=== PATIENT | male | born 1975 | race Hispanic/Latino ===

== ENCOUNTER 2023-03-08 15:32 | Emergency (ER) | payer OTHER ==
--- OUTSIDE RECORDS SUMMARY | 2023-03-08 15:35 | XMS REPORT | Continuity of Care Document ---
:1975 Author Organization [facility] t Address [address] [place] [address] [address] [place] [address] Care Team Providers Name Role Phone EARLE MOULTON Attending Clinician Unavailable PRIMMARIELY, EARLE MARLEY Attending Clinician Unavailable PRIMMARIELY, EARLE MARLEY Admitting Clinician Unavailable Payers Payer Name Policy Type Policy Number Effective Date Expiration Date Ron [place] [id number] 2017 [employer]C 00:00:00 [facility] Problems This patient has no known problems. Allergies, Adverse Reactions, Alerts This patient has no known allergies or adverse reactions. Medications This patient has no known medications. Procedures This patient has no known procedures. Encounters Start End Encounter Admission Attending Care Care Encounter Source Date/Time Date/Time Type Type Clinicians Facility Department ID 2022-12-23 2022-12-23 Outpatient [facility] [id number] Marek 09:29:18 09:29:18 [id number] F Sulaiman 2022-08-19 2022-08-19 Outpatient [facility] [id number] Marek 11:49:35 11:49:35 [id number] F Sulaiman 2022-07-02 2022-07-02 Outpatient [facility] [id number] [place] 09:45:00 09:45:00 [facility] 2022-01-04 2022-01-04 Outpatient [facility] NATHALIE [id number] 12:05:00 23:59:00 EARLE choi [facility] 2021-12-28 2021-12-28 Outpatient [facility] [id number] [place] 10:30:00 10:30:00 [facility] 2021-12-28 2021-12-28 Outpatient [facility] [id number] [place] 09:45:00 09:45:00 [facility] Results This patient has no known results.
[2023-03-08 17:47] LABS: Absolute Lymphocytes (CBC) 1.4 K/uL (0.7-4.9); Hematocrit 46.7 % (39.6-49.0); Lymphocytes % 17.2 % (15.3-44.8); MCV 93.2 fL (80-100); MPV 8.9 fL (7.6-11.3); Platelets 203 thou/uL (152-406); RBC Red Blood Cell Count 5.01 M/uL (4.33-5.43)
[2023-03-08 17:52] LABS: Protime INR 1.11
[2023-03-08 18:06] LABS: Magnesium 2.1 mg/dL (1.6-2.4); Potassium 3.2 mEq/L (3.5-5.1); Troponin High Sensitivity 4.3 pg/mL (<58.9)
--- NOTE | 2023-03-08 18:16 | RAD REPORT ---
EXAM DESCRIPTION: RAD - Chest Single View - 03/08/2023 6:07 pm CLINICAL HISTORY: SWELLING COMPARISON: CHEST SINGLE VIEW dated 03/07/2015; CHEST PA AND LAT 2 VIEW dated 12/11/2008 FINDINGS: Lines: None. Lungs: No evidence of edema or pneumonia. Pleural: No significant pleural effusions or pneumothorax. Cardiac: The heart size is within normal limits. Mediastinum: Within normal limits. Bones: No acute fractures. Other: None IMPRESSION: No acute cardiopulmonary disease.
--- NOTE | 2023-03-08 18:53 | RAD REPORT ---
EXAM DESCRIPTION: US - Extrem Venous W Compress Klaus - 03/08/2023 6:33 pm CLINICAL HISTORY: Pain;Swelling COMPARISON: No comparisons TECHNIQUE: Real-time sonographic evaluation of the lower extremity deep venous systems was performed using color Doppler, grayscale, and compression. FINDINGS: Bilateral lower extremities. Color Doppler, grayscale, and spectral analysis was performed. The right posterior tibial vein was in completely compressible an had a filling defect on grayscale. The remaining venous structures in the right and left lower extremity were compressible and did not demonstrate abnormality on color or gonzalez scale. IMPRESSION: Positive for deep venous thrombosis involving the right posterior tibial vein. The left lower extremity was negative for deep venous thrombosis. Findings relayed to Lise Ellison by Dr. Cabrera via secure chat at [phone] on 03/08/23
--- NOTE | 2023-03-08 19:44 | ER ---
Nurse's Notes [facility] Name: Malcolm Edwards Age: 47 yrs Sex: Male : 1975 Arrival Date: 03/08/2023 Time: 15:32 Bed 3 Private MD: Diagnosis: Acute embolism and thrombosis of unspecified deep veins of right lower extremity Presentation: 03/08 16:07 Chief complaint: Right leg pain, swelling, and hot to touch since this morning. Denies hb injury. Coronavirus screen: At this time, the client does not indicate any symptoms associated with coronavirus-19. Ebola Screen: No symptoms or risks identified at this time. Initial Sepsis Screen: Does the patient meet any 2 criteria? No. Patient's initial sepsis screen is negative. Does the patient have a suspected source of infection? No. Patient's initial sepsis screen is negative. Risk Assessment: Do you want to hurt yourself or someone else? Patient reports no desire to harm self or others. Onset of symptoms was March 08, 2023. 16:07 Acuity: LUIS 3 hb 16:07 Method Of Arrival: Ambulatory hb Historical: - Allergies: 16:08 No Known Allergies; hb - Home Meds: 16:08 None [Active]; hb - PMHx: 16:08 None; hb - PSHx: 16:08 Gastric Bypass; hb - Immunization history:: Adult Immunizations up to date. - Social history:: Smoking status: Patient denies any tobacco usage or history of. Screenin:47 [facility] ED Fall Risk Assessment (Adult) History of falling in the last 3 months, km8 including since admission No falls in past 3 months (0 pts) Confusion or Disorientation No (0 pts) Intoxicated or Sedated No (0 pts) Impaired Gait No (0 pts) Mobility Assist Device Used No (0 pt) Altered Elimination No (0 pt) Score/Fall Risk Level 0 - 2 = Low Risk Oriented to surroundings, Maintained a safe environment, Educated pt \T\ family on fall prevention, incl call for assistance when getting out of bed, Assessed \T\ reinforced patient's understanding of fall precautions. Abuse screen: Denies threats or abuse. Denies injuries from another. Nutritional screening: No deficits noted. Tuberculosis screening: No symptoms or risk factors identified. Assessment: 19:47 General: Appears in no apparent distress. comfortable, Behavior is calm, cooperative, km8 appropriate for age. Pain: Complains of pain in right lower leg Pain currently is 7 out of 10 on a pain scale. Neuro: Flores Agitation-Sedation Scale (RASS): 0 - Alert and Calm Level of Consciousness is awake, alert, obeys commands, Oriented to person, place, time. Cardiovascular: Denies chest pain, shortness of breath, Capillary refill < 3 seconds Patient's skin is warm and dry. Respiratory: Airway is patent Respiratory effort is even, unlabored, Respiratory pattern is regular, symmetrical. GI: No signs and/or symptoms were reported involving the gastrointestinal system. : No signs and/or symptoms were reported regarding the genitourinary system. EENT: No signs and/or symptoms were reported regarding the EENT system. Derm: No signs and/or symptoms reported regarding the dermatologic system. Skin is intact, is healthy with good turgor, Skin is dry, Skin is normal, Skin temperature is warm. Musculoskeletal: No signs and/or symptoms reported regarding the musculoskeletal system. Range of motion: limited in left elbow and left wrist and left hand/fingers Atrophy noted in left arm. 20:24 Reassessment: Patient appears in no apparent distress at this time. No changes from km8 previously documented assessment. Patient and/or family updated on plan of care and expected duration. Pain level reassessed. Patient is alert, oriented x 3, equal unlabored respirations, skin warm/dry/pink. Vital Signs: 16:07 Pulse 98; Resp 18; Temp 97.4(TE); Pulse Ox 97% ; Weight 181.44 kg; Height 5 ft. 6 in. ; hb Pain 7/10; 19:47 BP 125 / 79; Pulse 80; Resp 16 S; Pulse Ox 96% on R/A; km8 20:00 BP 131 / 79; Pulse 78; Resp 16 S; Pulse Ox 99% on R/A; km8 16:07 Body Mass Index 64.56 (181.44 kg, 167.64 cm) hb 16:07 Pain Scale: Adult hb ED Course: 15:36 Patient arrived in ED. mg5 15:51 Chicho Ellison PA is PHCP. cp 15:51 Mor Terry MD is Attending Physician. cp 16:07 Triage completed. hb 16:08 Arm band placed on. hb 17:41 Basic Metabolic Panel Sent. bc6 17:41 CBC with Diff Sent. bc6 17:41 Magnesium Sent. bc6 17:41 NT PRO-BNP Sent. bc6 17:41 PT-INR Sent. bc6 17:41 Troponin HS Sent. bc6 17:41 Inserted saline lock: 24 gauge in right hand, using aseptic technique. Blood collected. bc6 18:09 XRAY Chest (1 view) In Process Unspecified. EDMS 18:35 US Extremity Venous W Compression Klaus In Process Unspecified. EDMS 19:33 Alexia Davalos, RN is Primary Nurse. 8 19:47 Patient has correct armband on for positive identification. Bed in low position. Call [facility] light in reach. Side rails up X 1. Client placed on continuous cardiac and pulse oximetry monitoring. NIBP monitoring applied. countersinker balance screw hole on. 19:47 Patient maintains SpO2 saturation greater than 95% on room air. km8 19:51 Provided Education on: d/c teaching and blood thinner medication teaching. 8 19:51 No provider procedures requiring assistance completed. IV discontinued, intact, km8 bleeding controlled, No redness/swelling at site. Pressure dressing applied. Administered Medications: 19:47 Drug: Xarelto PO 20 mg PO once Route: PO; 8 20:23 Follow up: Response: No adverse reaction [facility] 19:47 Drug: Hydrocodone-Acetaminophen PO (7.5 mg-325 mg) 1 tabs PO once; RASS on ADMIN: km8 Combtv4, Very Agttd3, Agttd2, Rstlss1, AlertClm0, Drwsy-1, Lt Sdtn-2, Mod Sdtn-3, Dp Sdtn-4, UnArsble-5 Route: PO; 20:23 Follow up: Response: No adverse reaction 8 19:59 Drug: Potassium PO Effervescent Tablet 50 mEq PO once; dissolve in 4 ounces of water or km8 juice Route: PO; 20:23 Follow up: Response: No adverse reaction Medication: 19:51 VIS not applicable for this client. km8 Outcome: 19:44 Discharge ordered by . cp 20:27 Discharged to home ambulatory, 8 20:27 Condition: good 20:27 Discharge instructions given to patient, Instructed on discharge instructions, follow up and referral plans. medication usage, Demonstrated understanding of instructions, follow-up care, medications, Prescriptions given X , 20:28 Patient left the ED. km8 Signatures: Dispatcher [employer] EDMS Chicho Ellison PA PA cp Baxter, Heather, SAVITA BARNEY Stefanie Sheldon 6 Alicia Ortega 5 Alexia Davalos RN RN km8
--- NOTE | 2023-03-08 19:44 | EDPHYS ---
Physician Documentation [facility] Name: Malcolm Edwards Age: 47 yrs Sex: Male : 1975 Arrival Date: 03/08/2023 Time: 15:32 Bed 3 Private MD: ED Physician Mor Terry HPI: 03/08 16:15 This 47 yrs old Male presents to ER via Ambulatory with complaints of Leg cp Pain, Leg Swelling. 16:15 The patient presents with pain, that is acute, swelling, tenderness. The complaints cp affect the right lower leg. Context: resulted from an unknown cause, the patient can fully bear weight, the patient is able to ambulate, with mild difficulty, Problem is a result from a previous injury: No. 19:15 Patient denies any chest pain, denies any shortness of breath. cp Historical: - Allergies: 16:08 No Known Allergies; hb - Home Meds: 16:08 None [Active]; hb - PMHx: 16:08 None; hb - PSHx: 16:08 Gastric Bypass; hb - Immunization history:: Adult Immunizations up to date. - Social history:: Smoking status: Patient denies any tobacco usage or history of. ROS: 16:20 Constitutional: Negative for body aches, chills, fever, poor PO intake, cp 16:20 Eyes: Negative for injury, pain, redness, and discharge, cp 16:20 ENT: Negative for drainage from ear(s), ear pain, sore throat, difficulty swallowing, difficulty handling secretions, 16:20 Cardiovascular: Negative for chest pain, 16:20 Respiratory: Negative for cough, shortness of breath, wheezing, 16:20 Abdomen/GI: Negative for abdominal pain, vomiting, diarrhea, constipation, 16:20 Back: Negative for pain at rest, pain with movement, 16:20 MS/extremity: Positive for erythema, pain, swelling, tenderness, of the right lower leg, Negative for injury or acute deformity, paresthesias, 16:20 Neuro: Negative for altered mental status, dizziness, headache, syncope, near syncope, weakness, 16:20 All other systems are negative, Exam: 16:25 Constitutional: The patient appears in no acute distress, alert, awake, cp non-diaphoretic, non-toxic, well developed, well nourished, obese, 16:25 Head/Face: Normocephalic, atraumatic. cp 16:25 Eyes: Periorbital structures: appear normal, Conjunctiva: normal, no exudate, no injection, Sclera: no appreciated abnormality, Lids and lashes: appear normal, bilaterally, 16:25 ENT: External ear(s): are unremarkable, Nose: is normal, Mouth: Lips: moist, Oral mucosa: pink and intact, moist, Posterior pharynx: is normal, airway is patent, no erythema, no exudate, 16:25 Chest/axilla: Inspection: normal, 16:25 Cardiovascular: Rate: normal, Rhythm: regular, Edema: ankle edema, that is mild, JVD: is not appreciated, 16:25 Respiratory: the patient does not display signs of respiratory distress, Respirations: normal, no use of accessory muscles, no retractions, labored breathing, is not present, Breath sounds: are clear throughout, no decreased breath sounds, no stridor, no wheezing, 16:25 Abdomen/GI: Exam negative for discomfort, distension, guarding, Inspection: obese 16:25 Back: pain, is absent, ROM is normal, 16:25 Musculoskeletal/extremity: Extremities: grossly normal except: noted in the right lower leg: appears with mild swelling, mild erythema, tenderness to palpation, overlying skin intact and warm to touch, Perfusion: the extremity is normally perfused throughout, the right leg Sensation intact. 17:53 ECG was reviewed by the Attending Physician. cp Vital Signs: 16:07 Pulse 98; Resp 18; Temp 97.4(TE); Pulse Ox 97% ; Weight 181.44 kg; Height 5 ft. 6 in. ; hb Pain 7/10; 19:47 BP 125 / 79; Pulse 80; Resp 16 S; Pulse Ox 96% on R/A; km8 20:00 BP 131 / 79; Pulse 78; Resp 16 S; Pulse Ox 99% on R/A; km8 16:07 Body Mass Index 64.56 (181.44 kg, 167.64 cm) hb 16:07 Pain Scale: Adult hb MDM: 16:09 Patient medically screened. cp 17:00 Differential diagnosis: DVT, cellulitis, sepsis, abscess. cp 19:44 Data reviewed: vital signs, nurses notes, lab test result(s), EKG, radiologic studies, cp plain films, ultrasound. 19:44 Consideration of Admission/Observation Escalation of care including cp admission/observation considered. I considered the following discharge prescriptions or medication management in the emergency department Medications were administered in the Emergency Department. See MAR. Independent interpretation of the following test(s) in the Emergency Department EKG: See my EKG interpretation above. Counseling: I had a detailed discussion with the patient and/or guardian regarding the historical points, exam findings, and any diagnostic results supporting the discharge/admit diagnosis, lab results, radiology results, the need for outpatient follow up, a family practitioner, to return to the emergency department if symptoms worsen or persist or if there are any questions or concerns that arise at home. Response to treatment: the patient's symptoms have mildly improved after treatment, and as a result, I will discharge patient. 03/08 16:11 Order name: Basic Metabolic Panel; Complete Time: 18:25 cp 03/08 18:26 Interpretation: Normal except: K 3.2; GLUC 118. cp 03/08 16:11 Order name: CBC with Diff; Complete Time: 18:25 cp 03/08 18:26 Interpretation: Normal except: RDW 15.6. cp 03/08 16:11 Order name: Magnesium; Complete Time: 18:25 cp 03/08 16:11 Order name: NT PRO-BNP; Complete Time: 18:25 cp 03/08 16:11 Order name: PT-INR; Complete Time: 18:25 cp 03/08 16:11 Order name: Troponin HS; Complete Time: 18:25 cp 03/08 16:10 Order name: US Extremity Venous W Compression Klaus; Complete Time: 18:56 cp 03/08 18:57 Interpretation: Report reviewed. 03/08 16:11 Order name: XRAY Chest (1 view); Complete Time: 18:25 cp 03/08 16:11 Order name: EKG; Complete Time: 16:12 03/08 16:11 Order name: Cardiac monitoring; Complete Time: 19:47 cp 03/08 16:11 Order name: EKG - Nurse/Tech; Complete Time: 17:41 cp 03/08 16:11 Order name: IV Saline Lock; Complete Time: 17:41 cp 03/08 16:11 Order name: Labs collected and sent; Complete Time: 17:41 03/08 16:11 Order name: O2 Per Protocol; Complete Time: 17:57 cp 03/08 16:11 Order name: O2 Sat Monitoring; Complete Time: 17:57 03/08 19:20 Order name: Vital Signs: to include blood pressure; Complete Time: 19:47 cp EC:53 Rate is 91 beats/min. Rhythm is regular. NM interval is normal. QRS interval is cp prolonged at 108 msec. QT interval is normal. Interpreted by me. Reviewed by me. Administered Medications: 19:47 Drug: Xarelto PO 20 mg PO once Route: PO; [facility] 20:23 Follow up: Response: No adverse reaction [facility] 19:47 Drug: Hydrocodone-Acetaminophen PO (7.5 mg-325 mg) 1 tabs PO once; RASS on ADMIN: 8 Combtv4, Very Agttd3, Agttd2, Rstlss1, AlertClm0, Drwsy-1, Lt Sdtn-2, Mod Sdtn-3, Dp Sdtn-4, UnArsble-5 Route: PO; 20:23 Follow up: Response: No adverse reaction [facility] 19:59 Drug: Potassium PO Effervescent Tablet 50 mEq PO once; dissolve in 4 ounces of water or km8 juice Route: PO; 20:23 Follow up: Response: No adverse reaction [facility] Disposition Summary: 03/08/23 19:44 Discharge Ordered Notes: Location: Home cp Problem: new cp Symptoms: have improved cp Condition: Stable cp Diagnosis - Acute embolism and thrombosis of unspecified deep veins of right lower extremity cp Followup: cp - With: Private Physician - When: 1 week - Reason: Recheck today's complaints Discharge Instructions: - Discharge Summary Sheet cp - Deep Vein Thrombosis cp - Bleeding Precautions When on Anticoagulant Therapy, Adult cp Forms: - Medication Reconciliation Form cp - Thank You Letter cp - Antibiotic Education cp - Prescription Opioid Use cp - Patient Portal Instructions cp - Leadership Thank You Letter cp Prescriptions: - Xarelto 15 mg Oral tablet - take 1 tablet ORAL route 2 times per day for 21 days; 42 tablet; Refills: 0, cp Product Selection Permitted Addendum: 03/10/2023 10:58 I was immediately available for consultation during this patient's visit. I did not e c2 personally see the patient or guide the patient's care. Signatures: Dispatcher [employer] [facility]W[place] Chicho Ellison PA PA cp Baxter, Heather, RN RN hb Mor Terry MD MD ec2 Alexia Davalos, SAVITA RN km8
[2023-03-08] MEDS ORDERED: HYDROCODONE/APAP 7.5/325 MG TAB ONE (19:56)
[2023-03-08] MEDS ORDERED: RIVAROXABAN 20 MG TABLET PO ONE (19:56)
[2023-03-08] MEDS ORDERED: POTASSIUM 25 MEQ EFFERV TAB ONE (20:10)
[2023-03-08 20:45] VITALS: TEMP 97.4
[2023-03-08 20:52] VITALS: BP 131/79; O2SAT 99
--- NOTE | 2023-03-11 07:57 | EKG ---
Test Date: 2023-03-08 Test Time: 17:47:36 Licensed Loan Officer Assistant: MATIASW MEASUREMENT RESULTS: Intervals: Rate: 91 SD: 186 QRSD: 108 QT: 370 QTc: 455 Neligh: P: 35 SD: 186 QRS: 131 T: -2 INTERPRETIVE STATEMENTS: Normal sinus rhythm Normal ECG Compared to ECG 06/21/2020 13:11:45 No significant changes Electronically Signed On 03-11-23 07:52:32 CDT by Ji Peña
== END 2023-03-08 20:28 | disposition home or self-care (01) ==
LOC: ER 15:32
DX: I82.4Z1 Acute embolism and thrombosis of unspecified deep veins of right distal lower extremity (principal); Z98.84 Bariatric surgery status
CPT/HCPCS: 36415; 71045; 80048; 83735; 83880; 84484; 85025; 85610; 93005; 93970; 99285

== ENCOUNTER 2024-08-23 14:03 | Emergency (ER) | payer OTHER ==
--- OUTSIDE RECORDS SUMMARY | 2024-08-23 14:07 | XMS REPORT | Continuity of Care Document ---
Author Name Unknown Address [address] [place] [address] [facility] Address [address] [place] [address] Care Team Providers Care Lease Administration Analyst Name Role Phone Erasmo MAS, Ilana Primary Care Physician EARLE MOULTON Attending Clinician Miguel Ángel MOULTON, EARLE MARLEY Attending Clinician Miguel Ángel MOULTON, EARLE MARLEY Admitting Clinician Miguel Ángel paige Payers Payer Name Policy Type Policy Number Effective Date Expirati on Date Source [facility] MEDICAID [employer] [facility] [id number] 2017 00:00:00 Medications Ordered Medication Name Filled Medication Name Start Date Stop Date Current Medication? Ordering Clinician Indication Dosage Frequency Signature (SIG) Comments Components Source Cipro 500 mg tablet -14 00:00: 00 Yes 1mg Marek Hilario XARELTO 20MG 2022-05 2-04 00:00: 00 Yes Marek Hilario TAKE 1 TABLET DAILY. 2022-05 1- 00:00: 00 Yes 81 Marek Hilario XARELTO 15MG 2022-05 0-29 00:00: 00 Yes Marek Hilario TAKE 1 TABLET BY MOUTH EVERY 12 HOURS FOR 21 DAYS 2022-05 0-28 00:00: 00 Yes Marek Hilario TAKE 1 TAB DAILY IN AM - 00:00: 00 Yes 100 Marek Hilario TAKE 1 CAPSULE AT BEDTIME. 2023-0 8-22 00:00: 00 Yes 300 Marek Hilario TAKE 1 TABLET TWICE DAILY. 0 8- 00:00: 00 09-23 00:00 :00 No 500 Marek Hilario 1 TAB PO BID PRN PAIN 2022-0 8- 00:00: 00 09-23 00:00 :00 No 750 Marek Hilario 1 TAB PO BID PRN PAIN 2022-0 8- 00:00: 00 09-23 00:00 :00 No 750 Marek Hilario FUROSEMIDE 40MG 2022-0 5-03 00:00: 00 Yes Marek Hilario LEVOTHYROXI N 125MCG 2022-0 4-27 00:00: 00 Yes [id number] Marek Hilario TRELEGY 200 ELLIPTA INH 2022-0 4-11 00:00: 00 Yes Marek Hilario ALBUTEROL PA HFA 200 INH 0 4-10 00:00: 00 Yes Marek Hilario FLUVOXAMINE 50MG 2022-0 4-09 00:00: 00 Yes [id number] Marek Hilario USE 1 VIAL IN MNEBULIZER TWICE A DAY 2022-0 3-31 00:00: 00 Yes Marek Hilario AZITHROMYCI N 250MG 2022-0 3-31 00:00: 00 Yes Marek Hilario FLUVOXAMINE 50MG 2022-0 3-27 00:00: 00 Yes Marek Hilario LEVOTHYROXI N 125MCG 2022-0 3-21 00:00: 00 Yes Marek Hilario POT CHLOR KT 20MEQ ER 2022-0 3-21 00:00: 00 Yes Marke Hilario DISSOLVE 1 TABLET UNDER TONGUE 3 TIMES A DAY BY MOUTH NEEDED FOR NAUSEA AND VOMITING FOR 3 DAYS 2022-0 2-27 00:00: 00 Yes Marek Hilario URSODIOL 300MG 2022-0 2-27 00:00: 00 Yes Marek Hilario TAKE 1 TABLET BY MOUTH EVERY 4 HOURS NEEDED PAIN FOR 5 DAYS 2022-0 2-22 00:00: 00 Yes Marek Hilario ENOXAPARIN# 1 40/0.4ML SYN 2022-0 2-22 00:00: 00 Yes Marek Hilario LEVOTHYROXI N 125MCG 2022-0 2-22 00:00: 00 Yes [id number] Marek Hilario TAKE 1 TABLET BY MOUTH EVERY DAY 2022-0 -18 00:00: 00 Yes 125 Marek Hilario FLUVOXAMINE 50MG 2022-0 -18 00:00: 00 Yes [id number] Marek Hilario INHALE 1 PUFF BY INHALATION ONCE DAILY AT THE SAME TIME EACH DAY 2022-0 -04 00:00: 00 Yes Marek Hilario POT CHLOR KT 20MEQ ER 2021-05 00:00: 00 Yes Marek Hilario INHALE 2 INHALATION( S) BY MOUTH TWICE A DAY 2021-1 - 00:00: 00 Yes Marek Hilario CEFDINIR 300MG 2021-1 - 00:00: 00 Yes [id number] Marek Hilario AZITHROMYCI N 250MG 1 - 00:00: 00 Yes [id number] Marek Hilario TAKE 1 TABLET 1 TIME PER DAY NEEDED FOR PEDAL EDEMA WITH POTASSIUM 2021-05 00:00: 00 Yes Marek Hilario TRELEGY 200 ELLIPTA INH 2021-05 00:00: 00 Yes Marek Hilario POT CHLOR KT 20MEQ ER 2021-05 00:00: 00 Yes Marek Hilario INHALE 1 PUFF BY MOUTH EVERY DAY AT SAME TIME EACH DAY 1 06-02 00:00: 00 Yes Marek Hilario TAKE 1 TABLET BY MOUTH EVERY DAY NEEDED FOR PEDAL EDEMA WITH POTASSIUM 2021-05 00:00: 00 Yes Marek Hilario FLUVOXAMINE 50MG 1 06-02 00:00: 00 Yes [id number] Marek Hilario TAKE 2 CAPSULE BY MOUTH TWICE A DAY FOR 14 DAYS 2021-0 -14 00:00: 00 Yes Marek Hilario TAKE 1 CAPSULE BY MOUTH TWICE A DAY FOR 14 DAYS 2021-0 -14 00:00: 00 Yes Marek Hilario CLARITHROMY C 500MG 2021-0 9-14 00:00: 00 Yes [id number] Marek Hilario LEVOTHYROXI N 112MCG 2021-0 9-12 00:00: 00 Yes [id number] Marek Hilario TRAZODONE 50MG 2021-0 8-30 00:00: 00 Yes [id number] Marek Hilario AMITRIPTYLI N 50MG 0 8 00:00: 00 Yes [id number] Marek Hilario TAKE 1 TABLET BY MOUTH EVERY DAY 0 10-24 00:00: 00 Yes Marek Hilario TAKE 1 TABLET BY MOUTH TWICE A DAY 0 10-24 00:00: 00 Yes Marek Hilario LEVOTHYROXI N 100MCG 0 09-26 00:00: 00 Yes [id number] Marek Hilario CEFDINIR 300MG 0 09-25 00:00: 00 Yes [id number] Marek Hilario TAKE 1 TABLE BY MOUTH EVERY DAY AT BEDTIME 0 09-25 00:00: 00 Yes Marek Hilario Vital Signs Vital Name Observation Time Observation Value Comments S ource Height Measured 2024-07-27 09:36:00 65.00 inches Marek Hilario Body Temperature 2024-07-27 09:36:00 98.00 degrees Marek Hilario Heart Rate 2024-07-27 09:36:00 51.00 /min Demetra en F Sulaiman Respiratory Rate 2024-07-27 09:36:00 18.00 /min Marek Jasiel Hilario BP Systolic 2024-07-27 09:36:00 127 mm[Hg] Step hen F Sulaiman BP Diastolic 2024-07-27 09:36:00 60 mm[Hg] Kalyan phen F Sulaiman Weight Measured 2024-07-27 09:36:00 314.00 pounds Marek Hilario Height Measured 2023-09-29 14:17:00 65.00 inches Marek Hilario Body Temperature 2023-09-29 14:17:00 97.80 degrees Marek Hilario Heart Rate 2023-09-29 14:17:00 78.00 /min Demetra en F Sulaiman Respiratory Rate 2023-09-29 14:17:00 18.00 /min Marek F Sulaiman BP Systolic 2023-09-29 14:17:00 130 mm[Hg] Step hen F Sulaiman BP Diastolic 2023-09-29 14:17:00 78 mm[Hg] Kalyan phen F Sulaiman Weight Measured 2023-09-29 14:17:00 347.00 pounds Marek Hilario Height Measured 2023-09-23 10:14:00 65.00 inches Marek F Sulaiman Body Temperature 2023-09-23 10:14:00 97.90 degrees Marek F Sulaiman Heart Rate 2023-09-23 10:14:00 102.00 /min Step hen F Sulaiman Respiratory Rate 2023-09-23 10:14:00 20.00 /min Marek F Sulaiman BP Systolic 2023-09-23 10:14:00 130 mm[Hg] Step hen F Sulaiman BP Diastolic 2023-09-23 10:14:00 80 mm[Hg] Kalyan phen F Sulaiman Weight Measured 2023-09-23 10:14:00 346.00 pounds Marek F Sulaiman BP Systolic 2023-03-12 13:45:00 138 mm[Hg] Step hen F Sulaiman BP Diastolic 2023-03-12 13:45:00 74 mm[Hg] Kalyan phen F Sulaiman Weight Measured 2023-03-12 13:45:00 400.00 pounds Marek F Sulaiman Height Measured 2023-03-12 13:45:00 65.00 inches Marek F Sulaiman Body Temperature 2023-03-12 13:45:00 98.60 degrees Marek F Sulaiman Heart Rate 2023-03-12 13:45:00 96.00 /min Demetra en F Sulaiman Respiratory Rate 2023-03-12 13:45:00 18.00 /min Marek F Sulaiman BP Systolic 2022-12-23 09:38:00 126 mm[Hg] Step hen F Sulaiman BP Diastolic 2022-12-23 09:38:00 84 mm[Hg] Kalyan phen F Sulaiman Weight Measured 2022-12-23 09:38:00 438.00 pounds Marek F Sulaiman Height Measured 2022-12-23 09:38:00 Marek F Sulaiman Body Temperature 2022-12-23 09:38:00 98.90 degrees Marek F Sulaiman Heart Rate 2022-12-23 09:38:00 80.00 /min Demetra en F Sulaiman Respiratory Rate 2022-12-23 09:38:00 20.00 /min Marek F Sulaiman BP Systolic 2022-08-19 11:33:00 127 mm[Hg] Step hen F Sulaiman BP Diastolic 2022-08-19 11:33:00 95 mm[Hg] Kalyan phen F Sulaiman Weight Measured 2022-08-19 11:33:00 495.00 pounds Marek F Sulaiman Height Measured 2022-08-19 11:33:00 Marek Hilario Body Temperature 2022-08-19 11:33:00 97.51 degrees Marek Hilario Heart Rate 2022-08-19 11:33:00 72.00 /min Demetra Hilario Respiratory Rate 2022-08-19 11:33:00 20.00 /min Marek Hilario Encounters Start Date/Time End Date/Time Encounter Type Admission Type Attending [facility] Care Department Encounter ID Source 2024-07-27 09:30:17 2024-07-27 09:30:17 Outpatient SFA [id number] [id number] Marek Hilario 2024-07-27 00:00:00 2024-07-27 00:00:00 Outpatient Visit SFA [id number] Marek Hilario 2023-09-29 14:16:26 2023-09-29 14:16:26 Outpatient SFA [id number] [id number] Marek Hilario 2023-09-29 00:00:00 2023-09-29 00:00:00 Outpatient Visit SFA [id number] Marek Hilario 2023-09-23 10:13:37 2023-09-23 10:13:37 Outpatient SFA [id number] [id number] Marek Hilario 2023-09-23 00:00:00 2023-09-23 00:00:00 Outpatient Visit SFA [id number] Marek Hilario 2023-03-12 13:25:58 2023-03-12 13:25:58 Outpatient SFA [id number] [id number] Marek Hilario 2023-03-12 00:00:00 2023-03-12 00:00:00 Outpatient Visit SFA [id number] Marek Hilario 2022-12-23 09:29:18 2022-12-23 09:29:18 Outpatient SFA SFA [id number] Marek Hilario 2022-12-23 00:00:00 2022-12-23 00:00:00 Outpatient Visit SFA [id number] Marek Hilario 2022-08-19 11:49:35 2022-08-19 11:49:35 Outpatient SFA [id number] [id number] Marek Hilario 2022-08-19 00:00:00 2022-08-19 00:00:00 Outpatient Visit SFA [id number] Marek Hilario 2022-07-02 09:45:00 2022-07-02 09:45:[address] [facility] [id number] [facility] 2022-01-04 12:05:00 2022-01-04 23:59:00 Outpatient EARLE MOULTON [facility] [id number] [facility] 2021-12-28 10:30:00 2021-12-28 10:30:00 Outpatient [facility] [id number] [facility] 2021-12-28 09:45:00 2021-12-28 09:45:[address] [facility] [id number] [facility] Results Test Description Test Time Test Comments Results Result Co mments Source Marek HilarioLIPID PANEL [ADDED]2023-09-25 00:00:00* Test Item Value Reference Range Interpretation Comme nts CHOLESTEROL (test code = 2210) 180 MG/DL TRIGLYCERIDES (test code = 2232) 116 MG/DL HDL CHOLESTEROL (test code = 2220) 47 MG/DL CALC LDL CHOL (test code = 2237) 111 MG/DL RISK RATIO LDL/HDL (test cod e = 2238) 2.36 RATIO Marek HilarioCOMPREHENSIVE METABOLIC PANEL [ADDED]2023-09-25 00:00:00* Test Item Value Reference Range Interpretation Comme nts GLUCOSE (test code = 2217) 91 MG/DL BUN (test code = 2208) 7 MG/DL CREATININE (test code = 2214) 0.74 MG/DL eGFR (2020 CKD-EPI) (test code = 60562) 113 ML/MIN/1.73 CALC BUN/CREAT (test code = 2235) 9 RATIO SODIUM (test code = 2231) 139 MEQ/L POTASSIUM (test code = 2228) 4.0 MEQ/L CHLORIDE (test code = 2215) 104 MEQ/L CARBON DIOXIDE (test code = 2206) 19 MEQ/L CALCIUM (test code = 2209) 9.5 MG/DL PROTEIN, TOTAL (test code = 2229) 7.1 G/DL ALBUMIN (test code = 2201) 4.2 G/DL CALC GLOBULIN (test code = 2240) 2.9 G/DL CALC A/G RATIO (test code = 2234) 1.4 RATIO BILIRUBIN, TOTAL (test code = 2207) 3.0 MG/DL ALKALINE PHOSPHATASE (test code = 2204) 98 U/L AST (test code = 2218) 15 U/L ALT (test code = 2219) 19 U/L Marek HilarioURINALYSIS W/REFLEX MICRO [ADDED]2023-09-25 00:00:00* Test Item Value Reference Range Interpretation Comme nts COLOR (test code = 1501) DARK YELLOW APPEARANCE (test code = 1502) CLEAR SPECIFIC GRAVITY (test code = 1503) 1.015 LEUKOCYTE ESTERASE (test cod e = 1504) NEGATIVE NITRITE (test code = 1505) NEGATIVE pH (test code = 1506) 6.0 PROTEIN (test code = 1507) NEGATIVE GLUCOSE (test code = 1508) NEGATIVE KETONES (test code = 1509) NEGATIVE UROBILINOGEN (test code = 1510) 1.0 MG/DL BILIRUBIN (test code = 1511) NEGATIVE OCCULT BLOOD (test code = 1512) TRACE WHITE BLOOD CELLS (test code = 1513) 0-5 /HPF RED BLOOD CELLS (test code = 1514) 0-2 /HPF EPITHELIAL CELLS (test code = 70453) 0-5 /HPF BACTERIA (test code = 1515) NONE SEEN CASTS, HYALINE (test code = 1517) TRACE Marek HilarioHEPATITIS C ANTIBODY [ADDED]2023-09-25 00:00:00* Test Item Value Reference Range Interpretation Comme nts HEPATITIS C ANTIBODY (test c ode = 4640) NON-REACTIVE Marek HilarioPSA, TOTAL [ADDED]2023-09-25 00:00:00* Test Item Value Reference Range Interpretation Comme nts PSA, TOTAL (test code = 2606) 0.11 NG/ML Marek HilarioCBC W/AUTO DIFF WITH PLATELETS [ADDED]2023-09-25 00:00:00* Test Item Value Reference Range Interpretation Comme nts WBC (test code = 1001) 6.3 K/UL RBC (test code = 1002) 4.88 M/UL HEMOGLOBIN (test code = 1003) 15.5 G/DL HEMATOCRIT (test code = 1004) 46.7 % MCV (test code = 1005) 95.7 fL MCH (test code = 1006) 31.8 PG MCHC (test code = 1007) 33.2 G/DL RDW (test code = 1038) 13.0 % NEUTROPHILS (test code = 1008) 56.8 % LYMPHOCYTES (test code = 1010) 33.0 % MONOCYTES (test code = 1011) 7.3 % EOSINOPHILS (test code = 1012) 2.1 % BASOPHILS (test code = 1013) 0.5 % IMMATURE GRANULOCYTES (test code = 1036) 0.3 % NUCLEATED RBCS (test code = 1065) 0.0 /100WBC'S PLATELET COUNT (test code = 1015) 235 K/UL ABSOLUTE NEUTROPHILS (test c ode = 1066) 3.56 K/UL ABSOLUTE LYMPHOCYTES (test c ode = 1067) 2.07 K/UL ABSOLUTE MONOCYTES (test cod e = 1068) 0.46 K/UL ABSOLUTE EOSINOPHILS (test c ode = 1040) 0.13 K/UL ABSOLUTE BASOPHILS (test cod e = 1069) 0.03 K/UL ABS IMMATURE GRANULOCYTES (t est code = 1020) 0.02 K/UL ABS NUCLEATED RBCS (test cod e = 02221) 0.00 K/UL Marek HilarioLIPID PANEL [ADDED]2023-09-25 00:00:00* Test Item Value Reference Range Interpretation Comme nts CHOLESTEROL (test code = 2210) 180 MG/DL TRIGLYCERIDES (test code = 2232) 116 MG/DL HDL CHOLESTEROL (test code = 2220) 47 MG/DL CALC LDL CHOL (test code = 2237) 111 MG/DL RISK RATIO LDL/HDL (test cod e = 2238) 2.36 RATIO Marek HilarioCOMPREHENSIVE METABOLIC PANEL [ADDED]2023-09-25 00:00:00* Test Item Value Reference Range Interpretation Comme nts GLUCOSE (test code = 2217) 91 MG/DL BUN (test code = 2208) 7 MG/DL CREATININE (test code = 2214) 0.74 MG/DL eGFR (2020 CKD-EPI) (test code = 67947) 113 ML/MIN/1.73 CALC BUN/CREAT (test code = 2235) 9 RATIO SODIUM (test code = 2231) 139 MEQ/L POTASSIUM (test code = 2228) 4.0 MEQ/L CHLORIDE (test code = 2215) 104 MEQ/L CARBON DIOXIDE (test code = 2206) 19 MEQ/L CALCIUM (test code = 2209) 9.5 MG/DL PROTEIN, TOTAL (test code = 2229) 7.1 G/DL ALBUMIN (test code = 2201) 4.2 G/DL CALC GLOBULIN (test code = 2240) 2.9 G/DL CALC A/G RATIO (test code = 2234) 1.4 RATIO BILIRUBIN, TOTAL (test code = 2207) 3.0 MG/DL ALKALINE PHOSPHATASE (test code = 2204) 98 U/L AST (test code = 2218) 15 U/L ALT (test code = 2219) 19 U/L Marek Weathers SulaimanURINALYSIS W/REFLEX MICRO [ADDED]2023-09-25 00:00:00* Test Item Value Reference Range Interpretation Comme nts COLOR (test code = 1501) DARK YELLOW APPEARANCE (test code = 1502) CLEAR SPECIFIC GRAVITY (test code = 1503) 1.015 LEUKOCYTE ESTERASE (test cod e = 1504) NEGATIVE NITRITE (test code = 1505) NEGATIVE pH (test code = 1506) 6.0 PROTEIN (test code = 1507) NEGATIVE GLUCOSE (test code = 1508) NEGATIVE KETONES (test code = 1509) NEGATIVE UROBILINOGEN (test code = 1510) 1.0 MG/DL BILIRUBIN (test code = 1511) NEGATIVE OCCULT BLOOD (test code = 1512) TRACE WHITE BLOOD CELLS (test code = 1513) 0-5 /HPF RED BLOOD CELLS (test code = 1514) 0-2 /HPF EPITHELIAL CELLS (test code = 62820) 0-5 /HPF BACTERIA (test code = 1515) NONE SEEN CASTS, HYALINE (test code = 1517) TRACE Marek HilarioHEPATITIS C ANTIBODY [ADDED]2023-09-25 00:00:00* Test Item Value Reference Range Interpretation Comme nts HEPATITIS C ANTIBODY (test c ode = 0092) NON-REACTIVE Marek HilarioPSA, TOTAL [ADDED]2023-09-25 00:00:00* Test Item Value Reference Range Interpretation Comme nts PSA, TOTAL (test code = 2606) 0.11 NG/ML Marek Weathers Sulaiman Notes Date/Time Note Provider Source [facility]2024-05-20 00:00:00 [facility]2024-05-14 00:00:00 [facility]2023-11-01 00:00:00 [facility]2023-08-14 00:00:00 [facility]2023-04-10 00:00:00 [facility]
[2024-08-23] MEDS ORDERED: ASPIRIN 81 MG CHEWABLE TABLET ONE (14:40)
[2024-08-23 14:51] LABS: PT Prothrombin Time 10.7 SECONDS (10-13.0); Protime INR 0.94
[2024-08-23 15:02] LABS: Absolute Basophils 0.1 K/uL (0-0.5); Absolute Lymphocytes (CBC) 2.7 K/uL (0.7-4.9); Absolute Monocytes 0.4 K/uL (0.1-1.3); Absolute Neutrophil 4.2 K/uL (1.8-8.0); Basophils % 0.7 % (0-1.3); Eosinophils % 0.4 % (0-4.4); Hematocrit 40.8 % (39.6-49.0); Hemoglobin 14.1 g/dL (13.6-17.9); Lymphocytes % 36.4 % (15.3-44.8); MCH 32.4 pg (27.0-35.0); MCHC 34.6 g/dL (32.0-36.0); MCV 93.5 fL (80-100); MPV 8.1 fL (7.6-11.3); Neutrophils % 56.5 % (41.7-73.7); Nucleated Red Blood Cells % 0.1 % (0-0); Platelets 261 thou/uL (152-406); RBC Red Blood Cell Count 4.36 M/uL (4.33-5.43); Red Cell Distribution Width 15.6 % (12.1-15.2)
--- NOTE | 2024-08-23 15:16 | RAD REPORT ---
EXAMINATION: ONE VIEW CHEST XR CLINICAL INDICATION: Male, 48 years old.,CHEST PAIN TECHNIQUE: Frontal chest projection is submitted. Examination is limited by patient positioning and t echnique. COMPARISON: 03/08/2023 FINDINGS: The lungs are grossly clear although suboptimal inspiratory effort somewhat limits evaluation. No pn eumothorax or sizable effusion. The heart is normal in size. Mediastinal contours are unremarkable. IMPRESSION: No acute intrathoracic abnormalities.
[2024-08-23 15:18] LABS: Albumin 3.2 g/dL (3.4-5.0); Albumin/Globulin Ratio 0.8 (1.1-1.8); Anion Gap 7.3 mEq/L (5.0-15.0); Bilirubin Direct 0.3 mg/dL (0-0.2); Bilirubin Indirect, Calculated 1.7 mg/dL (0.2-0.8); Globulin 3.8 g/dL (2.3-3.5); Troponin High Sensitivity 3.6 pg/mL (<58.9)
[2024-08-23 15:20] LABS: Magnesium 2.2 mg/dL (1.6-2.4); Potassium 4.3 mEq/L (3.5-5.1)
--- NOTE | 2024-08-23 17:51 | RAD REPORT ---
EXAMINATION: US Abdomen Exam Limited CLINICAL HISTORY: [facility] Y elevated liver enzymes Bed Name: 3 COMPARISON: None. TECHNIQUE: Limited upper abdominal grayscale and color flow sonographic images. FINDINGS: Gallbladder: Numerous echogenic shadowing calculi. No significant wall thickening. No pericholecystic fluid. Bile ducts: No intrahepatic or extrahepatic biliary dilatation. Common bile duct measures 7 mm. Liver: Visualized portions of the liver demonstrate mild diffuse parenchymal echogenicity suggesting steatosis. Fluid: No ascites. IMPRESSION: Cholelithiasis, without sonographic findings to suggest acute cholecystitis. Mildly prominent common bile duct along its proximal aspect. Please correlate with bilirubin profile. Consider additional evaluation by MRCP or ERCP if there is concern for obstructive without cholelithiasis. Mild diffuse hepatic steatosis.
--- NOTE | 2024-08-23 18:09 | ER ---
Nurse's Notes [facility] Name: Malcolm Edwards Age: 48 yrs Sex: Male : 1975 Arrival Date: 08/23/2024 Time: 14:03 Bed 3 Private MD: Diagnosis: Other cholelithiasis with obstruction;Abnormal results of liver function studies;Chest pain, unspecified;Bradycardia, unspecified Presentation: 08/23 14:18 Chief complaint: Patient states: Left sided chest pain onset a few days ago but got cm10 worse today. pt describes the pain as a sharp and throbbing pain. pt also reports shortness of breath. Coronavirus screen: Client denies travel out of the [place] in the last 14 days. Ebola Screen: Patient denies travel to an Ebola-affected area in the 21 days before illness onset. Initial Sepsis Screen: Does the patient meet any 2 criteria? No. Patient's initial sepsis screen is negative. Does the patient have a suspected source of infection? No. Patient's initial sepsis screen is negative. Risk Assessment: Do you want to hurt yourself or someone else? Patient reports no desire to harm self or others. Onset of symptoms was August 23, 2024. 14:18 Method Of Arrival: Ambulatory cm10 14:18 Acuity: LUIS 2 cm10 Triage Assessment: 14:17 General: Appears in no apparent distress. uncomfortable, Behavior is calm, cooperative. cm10 Pain: Complains of pain in anterior aspect of left upper chest Pain does not radiate. Pain currently is 8 out of 10 on a pain scale. Quality of pain is described as sharp, throbbing, Pain began 2-3 days ago. Neuro: No deficits noted. Level of Consciousness is awake, alert, obeys commands, Oriented to person, place, time, situation, Appropriate for age. Respiratory: No deficits noted. Airway is patent Respiratory effort is even, unlabored, Respiratory pattern is regular, symmetrical. Historical: - Allergies: 14:18 No Known Allergies; cm10 - Home Meds: 14:18 None [Active]; cm10 - PMHx: 14:18 None; cm10 - PSHx: 14:18 Gastric Bypass; cm10 - Immunization history:: Adult Immunizations up to date. - Infectious Disease History:: Denies. - Social history:: Smoking status: Reported history of juuling and/or vaping. Screenin:02 [facility] ED Fall Risk Assessment (Adult) History of falling in the last 3 months, ll1 including since admission No falls in past 3 months (0 pts) Confusion or Disorientation No (0 pts) Intoxicated or Sedated No (0 pts) Impaired Gait No (0 pts) Mobility Assist Device Used No (0 pt) Altered Elimination No (0 pt) Score/Fall Risk Level 0 - 2 = Low Risk Maintained a safe environment, Hourly rounding (assess needs \T\ fall precautionary measures) done. Abuse screen: Denies threats or abuse. Nutritional screening: No deficits noted. Tuberculosis screening: No symptoms or risk factors identified. Assessment: 15:02 Reassessment: No changes from previously documented assessment. Patient and/or family ll1 updated on plan of care and expected duration. Pain level reassessed. 16:00 Reassessment: Patient appears in no apparent distress at this time. Patient and/or jb4 family updated on plan of care and expected duration. Pain level reassessed. Patient is alert, oriented x 3, equal unlabored respirations, skin warm/dry/pink. 17:00 Reassessment: Patient appears in no apparent distress at this time. Patient and/or jb4 family updated on plan of care and expected duration. Pain level reassessed. Patient is alert, oriented x 3, equal unlabored respirations, skin warm/dry/pink. 17:57 Reassessment: Patient appears in no apparent distress at this time. Patient and/or jb4 family updated on plan of care and expected duration. Pain level reassessed. Patient is alert, oriented x 3, equal unlabored respirations, skin warm/dry/pink. 18:49 Reassessment: Initiated transfer to [facility] DX cholelithiasis with biliary ss obstruction per SINAN Melendez. Spoke with New, microbiology coordinator who states he will call back. 19:15 General: Appears in no apparent distress. comfortable, Behavior is calm, cooperative. al5 Pain: Denies pain. Neuro: Level of Consciousness is awake, alert, obeys commands, Oriented to person, place, time, situation. Cardiovascular: Capillary refill < 3 seconds Patient's skin is warm and dry. Rhythm is sinus bradycardia. Respiratory: Airway is patent Respiratory effort is even, unlabored, Respiratory pattern is regular, symmetrical. GI: Abdomen is non-distended, obese. : No signs and/or symptoms were reported regarding the genitourinary system. EENT: No signs and/or symptoms were reported regarding the EENT system. Derm: Skin is intact, is healthy with good turgor, Skin is pink, warm \T\ dry. normal. Musculoskeletal: No signs and/or symptoms reported regarding the musculoskeletal system. 20:23 Reassessment: Patient appears in no apparent distress at this time. No changes from al5 previously documented assessment. Patient and/or family updated on plan of care and expected duration. Pain level reassessed. Patient is alert, oriented x 3, equal unlabored respirations, skin warm/dry/pink. 20:59 Reassessment: attempted to call [facility] to give report with no answer from al5 the facility x3 times. notified charge nurse [employer] sales unit advisor. 21:33 Reassessment: Patient appears in no apparent distress at this time. No changes from al5 previously documented assessment. Patient and/or family updated on plan of care and expected duration. Pain level reassessed. Patient is alert, oriented x 3, equal unlabored respirations, skin warm/dry/pink. Vital Signs: 14:18 BP 116 / 83; Pulse 63; Resp 15; Temp 98.5(O); Pulse Ox 98% on R/A; Weight 140.61 kg; cm10 Height 5 ft. 6 in. ; Pain 8/10; 15:01 BP 116 / 83; Pulse 52; Resp 17; Pulse Ox 98% on R/A; ll1 17:57 BP 115 / 86; Pulse 43; Resp 16; Pulse Ox 99% on R/A; jb4 19:12 BP 104 / 71; Pulse 50; Resp 15; Pulse Ox 100% on R/A; al5 20:24 BP 114 / 75; Pulse 43; Resp 15; Pulse Ox 100% ; al5 21:33 BP 119 / 81; Pulse 45; Resp 16; Pulse Ox 98% ; al5 14:18 Body Mass Index 50.03 (140.61 kg, 167.64 cm) cm10 14:18 Pain Scale: Adult cm10 ED Course: 14:10 Patient arrived in ED. al6 14:10 Chicho Ellison PA is PHCP. cp 14:10 Keith Carrera MD is Attending Physician. cp 14:17 Arm band placed on Patient placed in an exam room, on a stretcher, on vehicle monitor technician, cm10 on pulse oximetry. EKG completed in triage. Results shown to MD. 14:20 Triage completed. cm10 14:34 Evans Vasquez, SAVITA is Primary Nurse. ll1 14:49 XRAY Chest (1 view) In Process Unspecified. EDMS 14:50 Initial lab(s) drawn, by me, sent to lab. Inserted saline lock: 22 gauge in right hand, ll1 using aseptic technique. Blood collected. Flushed with 10 mL NS. 14:55 Provided Education on: ER procedures and process. ll1 15:03 Patient has correct armband on for positive identification. Bed in low position. Client ll1 placed on continuous cardiac and pulse oximetry monitoring. NIBP monitoring applied. monitor tech on. 15:03 Patient maintains SpO2 saturation greater than 95% on room air. ll1 17:06 US Abdomen Limited: gallbladder In Process Unspecified. EDMS 19:12 No provider procedures requiring assistance completed. al5 21:33 Patient transferred, IV remains in place. al5 Administered Medications: 14:44 Drug: Aspirin PO Chewable Tablet 324 mg PO once; 81 mg tablets x 4 Route: PO; ll1 20:24 Follow up: Response: No adverse reaction; Marked relief of symptoms al5 19:11 Drug: NS 0.9% IV 1000 ml IV at 1000 ml once; to be given as a bolus over 60 minutes al5 Route: IV; Rate: 1000 ml; Site: right hand; 20:24 Follow up: Response: No adverse reaction; IV Status: Completed infusion; IV Intake: al5 1000ml 21:31 Not Given (Patient Refused): fentanyl (pf)50 mcg IVP once al5 Medication: 15:03 VIS not applicable for this client. ll1 Intake: 20:24 IV: 1000ml; Total: 1000ml. al5 Outcome: 18:08 ER care complete, transfer ordered by . cp 21:33 Transferred by [facility] to [facility], Note: al5 formerly [facility] 21:33 Condition: stable 21:33 Instructed on the need for transfer, 21:51 Patient left the ED. al5 Signatures: Dispatcher [facility] Ginger Woods RN RN ss Chicho Ellison PA PA cp Bryson, James, RN RN jb4 Evans Vasquez, RN RN ll1 Ira Lloyd, RN RN cm10 Abi Bardales, RN RN al5 Sindy Vazquez6
--- NOTE | 2024-08-23 18:09 | EDPHYS ---
Physician Documentation [facility] Name: Malcolm Edwards Age: 48 yrs Sex: Male : 1975 Arrival Date: 08/23/2024 Time: 14:03 Bed 3 Private MD: ED Physician Keith Carrera HPI: 08/23 14:25 This 48 yrs old Male presents to ER via Ambulatory with complaints of Chest cp Pain. 14:25 The patient or guardian reports chest pain that is located primarily in the anterior cp chest wall, left. Onset: 2-3 days ago, intermittent. pain resolved now. 14:25 Associated signs and symptoms: Pertinent positives: abdominal pain, nausea, Pertinent cp negatives: cough, diaphoresis, dizziness, shortness of breath, syncope, vomiting. The chest pain is described as sharp, intermittent, throbbing. Historical: - Allergies: 14:18 No Known Allergies; cm10 - Home Meds: 14:18 None [Active]; cm10 - PMHx: 14:18 None; cm10 - PSHx: 14:18 Gastric Bypass; cm10 - Immunization history:: Adult Immunizations up to date. - Infectious Disease History:: Denies. - Social history:: Smoking status: Reported history of juuling and/or vaping. ROS: 14:30 Cardiovascular: Positive for chest pain, Negative for edema, palpitations, cp 14:30 Constitutional: Negative for body aches, chills, fever, poor PO intake, cp 14:30 Eyes: Negative for injury, pain, redness, and discharge, cp 14:30 ENT: Negative for drainage from ear(s), ear pain, sore throat, difficulty swallowing, difficulty handling secretions, 14:30 Respiratory: Negative for cough, shortness of breath, wheezing, 14:30 Abdomen/GI: Negative for vomiting, diarrhea, constipation, 14:30 Back: Negative for pain at rest, pain with movement, 14:30 Neuro: Negative for altered mental status, dizziness, headache, numbness, syncope, near syncope, weakness, 14:30 All other systems are negative, Exam: 14:26 ECG was reviewed by the Attending Physician. cp 14:40 Constitutional: The patient appears in no acute distress, alert, awake, cp non-diaphoretic, non-toxic, well developed, well nourished, obese, 14:40 Head/Face: Normocephalic, atraumatic. cp 14:40 Eyes: Periorbital structures: appear normal, Conjunctiva: normal, no exudate, no injection, Sclera: no appreciated abnormality, Lids and lashes: appear normal, bilaterally, 14:40 ENT: External ear(s): are unremarkable, Nose: is normal, Mouth: Lips: moist, Oral mucosa: moist, Posterior pharynx: Airway: no evidence of obstruction, patent, 14:40 Chest/axilla: Inspection: normal, Palpation: crepitus, is not appreciated, tenderness, is not appreciated, 14:40 Cardiovascular: Rate: bradycardic, Rhythm: regular, Edema: is not appreciated, JVD: is not appreciated, 14:40 Respiratory: the patient does not display signs of respiratory distress, Respirations: normal, no use of accessory muscles, no retractions, labored breathing, is not present, Breath sounds: are clear throughout, no decreased breath sounds, no stridor, no wheezing, 14:40 Abdomen/GI: Inspection: obese Bowel sounds: active, all quadrants, Palpation: soft, in all quadrants, mild abdominal tenderness, in the epigastric area, rebound tenderness, is not appreciated, involuntary guarding, is not appreciated, 14:40 Back: pain, is absent, ROM is normal, 14:40 Neuro: Orientation: to person, place \T\ time. Mentation: is normal, Motor: moves all fours, strength is normal, Sensation: is normal, Vital Signs: 14:18 BP 116 / 83; Pulse 63; Resp 15; Temp 98.5(O); Pulse Ox 98% on R/A; Weight 140.61 kg; cm10 Height 5 ft. 6 in. ; Pain 8/10; 15:01 BP 116 / 83; Pulse 52; Resp 17; Pulse Ox 98% on R/A; ll1 17:57 BP 115 / 86; Pulse 43; Resp 16; Pulse Ox 99% on R/A; jb4 19:12 BP 104 / 71; Pulse 50; Resp 15; Pulse Ox 100% on R/A; al5 20:24 BP 114 / 75; Pulse 43; Resp 15; Pulse Ox 100% ; al5 21:33 BP 119 / 81; Pulse 45; Resp 16; Pulse Ox 98% ; al5 14:18 Body Mass Index 50.03 (140.61 kg, 167.64 cm) cm10 14:18 Pain Scale: Adult cm10 MDM: 14:14 Medical Screening Exam initiated cp 15:00 Differential diagnosis: acute myocardial infarction, acute pericarditis, chest wall cp pain, cholecystitis, Cholelithiasis costochondritis, esophagitis, pancreatitis, pericarditis, pleurisy, pneumonia, pneumothorax, pulmonary embolus, stable angina, thoracic aortic disection, unstable angina. 18:15 Data reviewed: vital signs, lab test result(s), EKG, radiologic studies, plain films, ultrasound, I have discussed the patient's presentation/case with the attending Emergency Department Physician; and as a result, I will transfer patient. 18:15 I considered the following discharge prescriptions or medication management in the emergency department Medications were administered in the Emergency Department. See MAR. Independent interpretation of the following test(s) in the Emergency Department EKG: See my EKG interpretation above. Care significantly affected by the following chronic conditions: Obesity. 18:45 ED course: patient accepted by hospitalist, DR Prado, [facility], after discussion. 08/23 14:21 Order name: CBC with Diff; Complete Time: 15:58 ss 08/23 15:58 Interpretation: Normal except: RDW 15.6. 08/23 14:22 Order name: Basic Metabolic Panel; Complete Time: 15:58 08/23 15:58 Interpretation: Normal except: CL 108. 08/23 14:22 Order name: LFT's; Complete Time: 15:58 08/23 15:58 Interpretation: Normal except: BILIT 2.0; BILID 0.3; IBILI, CALC 1.7; ALB 3.2; GLOB cp 3.8; A/G 0.8. 08/23 14:22 Order name: Magnesium; Complete Time: 15:58 cp 08/23 14:22 Order name: NT PRO-BNP; Complete Time: 15:58 08/23 14:22 Order name: PT-INR; Complete Time: 15:58 cp 08/23 14:22 Order name: Troponin HS; Complete Time: 15:58 08/23 15:59 Interpretation: Reviewed. 08/23 17:52 Order name: Troponin High Sensitivity; Complete Time: 18:35 08/23 18:09 Order name: Lipase; Complete Time: 18:35 EDMS 08/23 14:21 Order name: XRAY Chest (1 view); Complete Time: 15:58 ss 08/23 16:00 Order name: US Abdomen Limited: gallbladder; Complete Time: 17:52 cp 08/23 14:21 Order name: Cardiac monitoring; Complete Time: 14:44 ss 08/23 14:21 Order name: EKG - Nurse/Tech; Complete Time: 14:44 ss 08/23 14:21 Order name: IV Saline Lock; Complete Time: 14:44 ss 08/23 14:21 Order name: Labs collected and sent; Complete Time: 14:44 ss 08/23 14:21 Order name: O2 Per Protocol; Complete Time: 14:44 ss 08/23 14:21 Order name: O2 Sat Monitoring; Complete Time: 14:44 ss 08/23 14:22 Order name: Cardiac monitoring; Complete Time: 14:23 cp 08/23 14:22 Order name: EKG - Nurse/Tech; Complete Time: 14:22 cp 08/23 14:22 Order name: IV Saline Lock; Complete Time: 14:34 cp 08/23 14:22 Order name: Labs collected and sent; Complete Time: 14:34 cp 08/23 14:22 Order name: O2 Per Protocol; Complete Time: 14:22 cp 08/23 14:22 Order name: O2 Sat Monitoring; Complete Time: 14:22 cp EC:26 Rate is 59 beats/min. Rhythm is regular. DC interval is normal. QRS interval is cp prolonged at 124 msec. QT interval is normal. T waves are Inverted in leads III, aVR. Interpreted by me. Reviewed by me. Administered Medications: 14:44 Drug: Aspirin PO Chewable Tablet 324 mg PO once; 81 mg tablets x 4 Route: PO; ll1 20:24 Follow up: Response: No adverse reaction; Marked relief of symptoms al5 19:11 Drug: NS 0.9% IV 1000 ml IV at 1000 ml once; to be given as a bolus over 60 minutes al5 Route: IV; Rate: 1000 ml; Site: right hand; 20:24 Follow up: Response: No adverse reaction; IV Status: Completed infusion; IV Intake: al5 1000ml 21:31 Not Given (Patient Refused): fentanyl (pf)50 mcg IVP once al5 Disposition Summary: 08/23/24 18:08 Transfer Ordered Notes: Reason: Higher level of care cp Condition: Stable cp Problem: new cp Symptoms: have improved cp Transfer Location: Other [facility](08/23/24 18:40) cp Accepting Physician: DR Prado(08/23/24 21:51) al5 Diagnosis - Other cholelithiasis with obstruction cp - Abnormal results of liver function studies cp - Chest pain, unspecified cp - Bradycardia, unspecified cp Forms: - Medication Reconciliation Form cp - SBAR form cp Signatures: Dispatcher [employer] EDMS Ginger Mckeon RN RN ss Chicho Ellison PA PA cp Evans Vasquez RN RN ll1 Ira Lloyd RN RN cm10 Abi Bardales RN RN al5 Corrections: (The following items were deleted from the chart) 14:22 14:22 CBC+H.LAB.BRZ ordered. EDMS EDMS 14:22 14:22 Chest Single View+RAD.RAD.BRZ ordered. EDMS EDMS 14:22 14:22 BASIC METABOLIC PANEL+C.LAB.BRZ ordered. EDMS EDMS 14:22 14:22 HEPATIC FUNCTION+C.LAB.BRZ ordered. EDMS EDMS 14:22 14:22 MAGNESIUM+C.LAB.BRZ ordered. EDMS EDMS 14:22 14:22 PROBNP+C.LAB.BRZ ordered. EDMS EDMS 14:22 14:22 PROTIME (+INR)+COAG.LAB.BRZ ordered. EDMS EDMS 14:23 14:22 Troponin High Sensitivity+C.LAB.BRZ ordered. EDMS EDMS 14:23 14:23 Chest Single View+RAD.RAD.BRZ ordered. EDMS EDMS 14:46 14:22 CBC+H.LAB.BRZ ordered. EDMS EDMS 14:47 14:22 BASIC METABOLIC PANEL+C.LAB.BRZ ordered. EDMS EDMS 14:47 14:22 Troponin High Sensitivity+C.LAB.BRZ ordered. EDMS EDMS 18:09 17:54 LIPASE+C.LAB.BRZ ordered. EDMS EDMS 18:40 18:08 doctor cp cp 18:40 18:08 [facility] cp cp 21:51 18:40 DR Prado cp al5 08/24 19:49 08/23 14:25 The chest pain is described as aching, intermittent cp cp
[2024-08-23] MEDS ORDERED: NA CHLORIDE 0.9% 1,000 ML ONE (19:08)
[2024-08-23 22:22] VITALS: TEMP 98.5
[2024-08-23 22:28] VITALS: BP 119/81; O2SAT 98
== END 2024-08-23 21:51 | disposition short-term general hospital (02) ==
LOC: ER 14:03
DX: K80.81 Other cholelithiasis with obstruction (principal); R94.5 Abnormal results of liver function studies; R00.1 Bradycardia, unspecified; Z98.84 Bariatric surgery status
CPT/HCPCS: 93005; 85025; 80048; 36415; 83735; 85610; 80076; 84484 ×2; 83690; 83880; 71045; 76705; 96360; 99285; J7030